=== PATIENT | female | born 1965 | race Caucasian/White ===

== ENCOUNTER → 2018-01-04 | Outpatient (CLI) | payer OTHER ==
[2018-01-04 17:09] LABS: CREATININE FOR GFR 1.01 MG/DL (0.55-1.30); GLOMERULAR FILTRATION RATE > 60.0 (>51)
[2018-01-04 17:09] LABS: BLOOD UREA NITROGEN 13 MG/DL (7-18)
== END ==
LOC: M WUC 14:52
DX: M54.5 Low back pain (principal); Z01.812 Encounter for preprocedural laboratory examination

== ENCOUNTER → 2018-03-02 | Outpatient (REF) | payer OTHER ==
[2018-03-02 13:58] LABS: VITAMIN B12 LEVEL 297 PG/ML
[2018-03-02 13:59] LABS: FOLATE 5.1 NG/ML
[2018-03-02 14:10] LABS: FREE T4 1.19 NG/DL (0.76-1.46); RHEUMATOID FACTOR QUANT < 10.0 IU/ML (<15.0); TOTAL PROTEIN 7.4 GM/DL (6.4-8.2)
[2018-03-02 14:36] LABS: ERYTHROCYTE SEDIMENTATION RATE 15 mm/hr (0-30)
[2018-03-03 10:06] LABS: GLOMERULAR FILTRATION RATE 55.3 (>51)
[2018-03-03 10:06] LABS: BLOOD UREA NITROGEN 11 MG/DL (7-18)
[2018-03-03 12:36] LABS: ALBUMIN % 57.4 % (55.8-66.1)
[2018-03-03 12:37] LABS: ALBUMIN 4.25 GM/DL (3.29-5.55); ALPHA-1-GLOBULIN % 5.3 % (2.9-4.9); ALPHA-1-GLOBULINS 0.39 GM/DL (0.17-0.41); ALPHA-2-GLOBULINS 0.81 GM/DL (0.42-0.99); BETA-1-GLOBULINS 0.52 GM/DL (0.28-0.60); BETA-2-GLOBULINS 0.46 GM/DL (0.19-0.55); BETA-2-GLOBULINS % 6.2 % (3.2-6.5); GAMMA GLOBULIN % 13.1 % (11.1-18.8); GAMMA GLOBULINS 0.97 GM/DL (0.65-1.58)
[2018-03-06 00:06] LABS: ANGIOTENSIN 1 CONVERTING ENZYM 35 U/L (14-82); ANTINUCLEAR ANTIBODIES DIRECT Negative (Negative); METHYLMALONIC ACID 193 nmol/L (0-378); SJOGREN'S ANTI SS-A <0.2 AI (0.0-0.9); SJOGREN'S ANTI SS-B <0.2 AI (0.0-0.9); VITAMIN B1 LEVEL WHOLE BLOOD 108.8 nmol/L (66.5-200.0); VITAMIN E(ALPHA TOCOPHEROL) 6.9 mg/L (7.0-25.1); VITAMIN E(GAMMA TOCOPHEROL) 1.6 mg/L (0.5-5.5)
== END ==
LOC: M LABNEURO 08:53
DX: N18.9 Chronic kidney disease, unspecified (principal); E07.9 Disorder of thyroid, unspecified; D86.9 Sarcoidosis, unspecified

== ENCOUNTER → 2018-05-07 | Outpatient (CLI) | payer OTHER | LOC: M PLARAD 09:39 | DX: G45.9 Transient cerebral ischemic attack, unspecified (principal); R20.2 Paresthesia of skin ==

== ENCOUNTER 2018-07-20 09:03 | Outpatient (CLI) | payer OTHER ==
[2018-07-20] MEDS ORDERED: MIDAZOLAM INJ 2 MG/2 ML VIAL (J2250) As Ordered (09:50)
[2018-07-20] MEDS ORDERED: PROHANCE 279.3MG/ML 5ML VIAL (A9576) As Ordered (10:06)
[2018-07-20] MEDS ORDERED: LR 1,000 ML IV (11:30)
[2018-07-20] MEDS ORDERED: ONDANSETRON 4MG/2ML VIAL (J2405) IV (11:30)
[2018-07-27 09:41] LABS: BEDSIDE GLUCOSE 132 MG/DL (70-105)
== END 2018-07-20 11:14 | disposition home or self-care (01) ==
LOC: M RAD 09:03
DX: G45.9 Transient cerebral ischemic attack, unspecified (principal); R20.2 Paresthesia of skin

== ENCOUNTER → 2018-12-16 | Outpatient (REF) | payer OTHER ==
[~2018-12-16] MED LIST: ADVAIR INH; ATROVENT INH; COMBVENT INH; DIAMOX OR; DIAMOX PO; GABA300T; HYDROCODONE; LEVO25TA2 OR; NEUR300C OR; NEXI20CA OR; NEXIUM OR; OXYC40TA19 OR; PREDNISONE TAPER OR; PROZ20CA OR; PROZ40CA OR; TENO50TA OR; VICO5TAB OR; ZOCO10TA OR; albuterol sulfate INH
[2018-12-16 13:43] LABS: FOLATE 4.3 NG/ML (>5.4)
== END ==
LOC: M LABNEURO 11:04
PROVIDERS: ATTEND Psychiatry & Neurology Neurology
DX: E53.8 Deficiency of other specified B group vitamins (principal)

== ENCOUNTER 2021-01-16 09:45 | Emergency (ER) | payer OTHER ==
[~2021-01-16] VITALS: Ht 175.3 cm; Wt 104.5 kg
[2021-01-16] MEDS ORDERED: TRAZ-252 (10:00)
[2021-01-16] MEDS ORDERED: ALPR0.25 (10:00)
[2021-01-16] MEDS ORDERED: TRUL0.5I (10:00)
[2021-01-16 10:56] LABS: BASO # 0.1 10^3/uL (0.0-0.2); BASO % 0.6 % (0.0-1.0); EOS # 0.1 10^3/uL (0.0-0.5); EOS % 0.5 % (0.0-3.0); HEMATOCRIT 42.3 % (36.0-47.0); LYMPH # 1.6 10^3/uL (1.5-5.0); LYMPH % 15.7 % (24.0-44.0); MEAN CORPUSCULAR HEMOGLOBIN 32.9 pg (27.0-33.0); MEAN CORPUSCULAR HGB CONC 33.1 g/dl (32.0-36.5); MEAN CORPUSCULAR VOLUME 99.3 fl (80.0-96.0); MONO # 0.4 10^3/uL (0.0-0.8); MONO % 3.7 % (2.0-8.0); NEUTROPHILS # 8.2 10^3/uL (1.5-8.5); NEUTROPHILS % 79.1 % (36.0-66.0); PLATELET COUNT, AUTOMATED 244 10^3/uL (150-450); RED BLOOD COUNT 4.26 10^6/uL (4.00-5.40); WHITE BLOOD COUNT 10.4 10^3/uL (4.0-10.0)
[2021-01-16] MEDS ORDERED: NS 1,000 ML IV ONE (11:00)
[2021-01-16] MEDS ORDERED: ONDANSETRON 4MG/2ML VIAL IV ONE (11:00)
[2021-01-16 11:21] LABS: ALBUMIN 3.8 GM/DL (3.2-5.2); BILIRUBIN,DIRECT 0.1 MG/DL (0.0-0.2); BILIRUBIN,TOTAL 0.4 MG/DL (0.2-1.0)
[2021-01-16] MEDS ORDERED: MORPHINE 4 MG/ML 1ML VIAL/SYRINGE (J2270) IV ONE (11:25)
[2021-01-16] MEDS ORDERED: KETOROLAC 30 MG/ML 1ML VIAL IV ONE (12:50)
--- NOTE | 2021-01-16 13:41 | REP ---
INDICATION: LLQ and L flank pain, hematuria. COMPARISON: 04/04/2012 TECHNIQUE: Noncontrast scanning through the abdomen and pelvis with coronal and sagittal reconstructions. FINDINGS: CT abdomen: Lung bases show minor dependent atelectatic change bladder without effusion, infiltrate, nodule or mass. Some linear atelectatic change lateral basal segment of the left lower lobe. Heart not enlarged and there is no pericardial thickening or effusion nor any hiatal hernia. Liver, spleen, pancreas and adrenal glands are normal. The gallbladder surgically absent. The aorta has a few calcifications without aneurysm. There is no periaortic, retroperitoneal or mesenteric pathologic sized lymphadenopathy. Small bowel loops are grossly unremarkable and not dilated. Stool and gas scattered in the colon without signs of colitis or diverticulitis in the abdomen proper. Lung window review of all CT slices in the abdomen and pelvis shows no perforation or free air. No abdominal ascites. The right kidney shows lower pole cortical cyst about 13 mm. There is a nonobstructing lower pole stone about 6 mm. No hydronephrosis, hydroureter or ureteral stone on the right. The left kidney shows extrarenal pelvis, 3 mm lower pole stone, 7 mm lateral lower pole stone and a proximal ureteral stone about 7 mm size. There is periureteral edema and some perinephric edema near the hilum. Another calcification in the left kidney and a pyramid about 6 mm within the lower pole remainder of the course of the left ureter is normal and there are no other ureteral stones. Bone windows show L4-5 and L5-S1 laminectomies and lumbar fusion with disc spacers. These are unchanged. Visualized lower ribs were intact. CT pelvis: Bone windows show the sacrum, SI joints, iliac bones, acetabular leak, ischia and hips without fracture or focal lesion. There are degenerative changes at the lumbosacral junction and both hips with acetabular roof spurring. There is no ventral or inguinal hernia. The bladder is partially filled but without stone, mass or wall thickening. A few pelvic phleboliths are seen. Uterus anteverted not enlarged. No pelvic mass or adenopathy. The distal left colon and sigmoid to the rectum were unremarkable. Small bowel loops unremarkable. Cecum and appendix seen and normal. The appendix is retrocecal extending superiorly with its tip just below the level of the iliac crest in the peritoneal gutter. IMPRESSION: 1. A 7 mm stone in the proximal left ureter at about the level of the left L3 transverse process. There is hydronephrosis, some hydroureter above and below it with periureteral and perirenal stranding. Both kidneys show other stones; on the right nonobstructing in a calyx, on the left probably within a pyramid and calyx. 2. No colitis, diverticulitis, appendicitis or any acute inflammatory process involving bowel loops. 3. No abdominal or pelvic lymphadenopathy. Prior cholecystectomy. Solid organs in the upper abdomen otherwise unremarkable. <Electronically signed by Raheel Israel > 01/16/21 [id number]
[2021-01-16] MEDS ORDERED: cefTRIAXone SOD 1 GM in D5W MINI-BAG PLUS 50 ML IV ONE (14:55)
[2021-01-16] MEDS ORDERED: SULF1TAB23 PO (15:34)
[2021-01-16] MEDS ORDERED: FLOM0.4C39 PO ×2 (15:35→15:43)
[2021-01-16] MEDS ORDERED: KETO10TAB PO ×2 (15:35→15:43)
[2021-01-16] MEDS ORDERED: REGL10TA6 PO ×2 (15:38→15:43)
[2021-01-16] MEDS ORDERED: BACT800T5 PO (15:43)
[2021-01-16 15:45] VITALS: BP 124/71
--- NOTE | 2021-01-16 20:34 | ECGEPIP ---
[facility] - ED Test Date: 2021-01-16 Pat Name: VALERIE SMITH Department: Room: - Gender: Female Yarn Spinner: : [id number] Requested By: NADIA Lima PA-C Order Number: [id number] Reading MD: Mat Ledesma Measurements Intervals [place] Rate: 71 P: 51 IL: 196 QRS: -31 QRSD: 78 T: 70 QT: 400 QTc: 434 Interpretive Statements Normal sinus rhythm Low voltage QRS Nonspecific T wave abnormality NO PRIORS FOR COMPARISON Electronically Signed on 01-16-2021 20:33:54 EDT by Mat Ledesma
== END 2021-01-16 16:00 | disposition home or self-care (01) ==
LOC: M ED 09:45
DX: N20.2 Calculus of kidney with calculus of ureter (principal); N39.0 Urinary tract infection, site not specified; E11.9 Type 2 diabetes mellitus without complications; K21.9 Gastro-esophageal reflux disease without esophagitis; E03.9 Hypothyroidism, unspecified; J45.909 Unspecified asthma, uncomplicated; K58.9 Irritable bowel syndrome, unspecified; F17.200 Nicotine dependence, unspecified, uncomplicated; Z79.84 Long term (current) use of oral hypoglycemic drugs; Z88.1 Allergy status to other antibiotic agents
CPT/HCPCS: 74176; 80047; 80076; 81001; 82150; 83690; 85025; 87086; 93005; 96361; 96365; 96375; 99284; J0696; J1885; J2270; J2405

== ENCOUNTER → 2021-02-06 | Outpatient (CLI) | payer OTHER ==
[~2021-02-06] MED LIST changes: +ALPR0.25; +BACT800T5 PO; +FLOM0.4C39 PO; +KETO10TAB PO; +REGL10TA6 PO; +SULF1TAB23 PO; +TRAZ-252; +TRUL0.5I
--- NOTE | 2021-02-06 09:56 | REP ---
INDICATION: CALCULUS OF KIDNEY COMPARISON: CT dated 01/16/2021 TECHNIQUE: Supine view of the abdomen and pelvis. FINDINGS: 7 mm obstructing left ureteral calculus is now identified at the level of the iliac crest. Smaller nonobstructing left intrarenal calculi noted. Further evaluation of the urinary tract system is limited by overlying bowel gas. Evidence for prior cholecystectomy. Mild/moderate fecal stasis suggested without obstruction. No organomegaly. Prior lumbar spine surgery. IMPRESSION: 1. Obstructing left ureteral calculus has progressed distally to the level of the iliac crest overlying the L5 transverse process. Small nonobstructing left renal calculi. <Electronically signed by Xander Stinson > 02/06/21 0904
== END ==
LOC: M RAD 09:35
PROVIDERS: ATTEND Specialist
DX: N20.1 Calculus of ureter (principal)

== ENCOUNTER → 2021-03-04 | Outpatient (CLI) | payer OTHER ==
[~2021-03-04] MED LIST changes: +ALBU83IN INH; +ALPR0.5T6 PO; +ATEN50TA2 PO; +ATOR40TA75 PO; +CYCL-707 PO; +METO10TA2 PO; +SYNT75TA PO; +TRUL0.5I SC
[2021-03-04 14:02] LABS: APPEARANCE, URINE CLEAR (CLEAR); BACTERIA, URINE AUTO NEGATIVE (NEGATIVE); BILIRUBIN, URINE AUTO NEGATIVE (NEGATIVE); BLOOD, URINE BLOOD NEGATIVE (NEGATIVE); COLOR, URINE COLORLESS (YELLOW); GLUCOSE, URINE (UA) AUTO NEGATIVE (NEGATIVE); KETONE, URINE AUTO NEGATIVE (NEGATIVE); LEUKOCYTE ESTERASE, URINE AUTO NEGATIVE (NEGATIVE); NITRITE, URINE AUTO NEGATIVE (NEGATIVE); PROTEIN, URINE AUTO NEGATIVE (NEGATIVE); RBC, URINE AUTO 0 /HPF (0-3); SPECIFIC GRAVITY URINE AUTO 1.001 (1.002-1.035); SQUAMOUS EPITHELIAL CELL UR AU 0 /HPF (0-6); UROBILINOGEN, URINE AUTO 0.2 mg/dL (0.0-2.0); WBC, URINE AUTO 1 /HPF (0-3)
[2021-03-04 14:02] LABS: MEAN CORPUSCULAR HEMOGLOBIN 32.5 pg (27.0-33.0); MEAN CORPUSCULAR HGB CONC 33.3 g/dl (32.0-36.5); MEAN CORPUSCULAR VOLUME 97.6 fl (80.0-96.0); PLATELET COUNT, AUTOMATED 299 10^3/uL (150-450); RED BLOOD COUNT 4.61 10^6/uL (4.00-5.40); WHITE BLOOD COUNT 9.9 10^3/uL (4.0-10.0)
[2021-03-04 14:14] LABS: INR 0.9; PROTHROMBIN TIME 12.3 SECONDS (12.5-14.3)
[2021-03-04 14:15] LABS: PARTIAL THROMBOPLASTIN TIME 24.5 SECONDS (24.2-38.5)
[2021-03-04 14:30] LABS: CALCIUM LEVEL 9.2 MG/DL (8.5-10.1); CREATININE FOR GFR 1.04 MG/DL (0.55-1.30); GLOMERULAR FILTRATION RATE 58.4 (>51); POTASSIUM SERUM 4.1 MEQ/L (3.5-5.1)
--- NOTE | 2021-03-04 14:42 | REP ---
INDICATION: HYDRONEPHROSIS W RENAL COMPARISON: 07/31/2010 TECHNIQUE: PA and lateral. FINDINGS: The mediastinum and cardiac silhouette are normal. The lung [place] are clear and without acute consolidation, effusion, or pneumothorax. The skeletal structures are intact and normal. IMPRESSION: No acute cardiopulmonary process. <Electronically signed by Xander Stinson > 03/04/21 [id number]
== END ==
LOC: M LAB 13:31
PROVIDERS: ATTEND Nurse Practitioner Women's Health
DX: N13.2 Hydronephrosis with renal and ureteral calculous obstruction (principal); Z01.818 Encounter for other preprocedural examination

== ENCOUNTER → 2021-03-06 | Outpatient (CLI) | payer OTHER | LOC: M LABSMTC 10:33 | PROVIDERS: ATTEND Anesthesiology | DX: Z01.812 Encounter for preprocedural laboratory examination (principal); Z20.822 Contact with and (suspected) exposure to COVID-19 ==

== ENCOUNTER 2021-03-11 06:15 | Day surgery (SDC) | payer OTHER ==
[~2021-03-11] VITALS: Ht 175.3 cm; Wt 107.5 kg
[~2021-03-11 06:15] MED LIST changes: +CIPROFLOXACIN 400 MG in IV 1 EA IV ONE; +LR 1,000 ML IV ONE
[2021-03-11] MEDS ORDERED: CONRAY-60 60% 50ML VIAL (Q9961) As Ordered ONE (07:11)
[2021-03-11] MEDS ORDERED: dexameTHASONE 4 MG/ML 1ML VIAL (J1100 PER 1MG) As Ordered ONE (07:13)
[2021-03-11] MEDS ORDERED: LIDOCAINE 2% 100MG/5ML SDV (FOR ANES.) As Ordered ONE (07:13)
[2021-03-11] MEDS ORDERED: ONDANSETRON 4MG/2ML VIAL As Ordered ONE (07:13)
[2021-03-11] MEDS ORDERED: propofoL 200 MG/20 ML VIAL As Ordered ONE (07:13)
[2021-03-11] MEDS ORDERED: MIDAZOLAM INJ 2MG/2ML VIAL (J2250 PER 1MG) As Ordered ONE (07:14)
[2021-03-11] MEDS ORDERED: fentaNYL 100 MCG/2 ML INJECTION (J3010) As Ordered ONE (07:16)
--- NOTE | 2021-03-11 08:22 | REP ---
INDICATION: CYSTO, LEFT STENT URETEROSCOPY. COMPARISON: None. TECHNIQUE: Intraoperative fluoroscopic imaging using C-arm technique. FINDINGS: Single image demonstrates left ureteral stent extending to the left mid abdomen. Total fluoroscopic time 22 seconds. IMPRESSION: Presumed appropriate left ureteral stent placement. <Electronically signed by Xander Stinson > 03/11/21 0819
--- NOTE | 2021-03-11 08:29 | ROOPDOC ---
[facility] Report Of Operation Report of Operation DATE OF PROCEDURE: 03/11/21 PREPROCEDURE DIAGNOSES: Left ureteral and renal calculi POSTPROCEDURE DIAGNOSES: Left renal calculi PROCEDURE: Cystoscopy, left retrograde pyelogram, ureteroscopic stone extraction, stent insertion, fluoroscopy with x-ray interpretation SURGEON: Damien Miller MD CORING MACHINE OPERATOR: None ANESTHESIA: Gen. ESTIMATED BLOOD LOSS: Approximately 0 mL. COMPLICATIONS: None REMARKS: . PROCEDURE NOTE: The patient was brought to the operating room for a ureteroscopic laser lithotripsy and extraction of renal and ureteral calculi. DESCRIPTION OF PROCEDURE: The patient was placed on the table in the supine position, given general anesthesia, placed in lithotomy position, prepped with Betadine paint, draped in aseptic manner, and timeout was performed. A #22 [place] cystoscope was inserted into the meatus and advanced under direct vision of a 30 lens to the bladder. The bladder appeared normal when surveyed. The left ureteral orifice was then catheterized with a 5 [place] Pollack catheter and retrograde injection of 10 mL of Conray showed no ureteral calculi. A wire guide was then left in place followed by a working wire and the cystoscope was removed. The flexible ureteroscope was then advanced over the working wire and no ureteral stones were seen. In the renal pelvis, each calyx was individually examined. There was one small stone in a lower pole calyx that was grabbed and extracted. No other stones were seen. The ureteroscope was then removed under direct vision and no calculi or fragments were identified. The cystoscope was then backloaded over the safety wire and a 6 [place] double-J stent was passed over the wire which curled well in the renal pelvis and in the bladder when the wire was removed. The cystoscope was removed after draining the bladder and the patient was awakened and sent to recovery room in stable condition having tolerated procedure well. Fluoroscopy was used and interpreted throughout the case to pass instruments and identified stones as well as evaluate the renal calyces. The patient will be seen back in the office in 2 weeks for stent removal. DAMIEN MILLER MD March 11, 2021 08:29
[2021-03-11] MEDS ORDERED: oxyCODONE 5MG TAB PO PRN (09:00)
[2021-03-11] MEDS ORDERED: IBUPROFEN 600MG TAB PO PRN (09:00)
[2021-03-11] MEDS ORDERED: LR 1,000 ML IV SCH ×2 (09:00)
[2021-03-11] MEDS ORDERED: ONDANSETRON 4MG/2ML VIAL IV PRN (09:00)
[2021-03-11] MEDS ORDERED: fentaNYL 100 MCG/2 ML INJECTION (J3010) IV PRN (09:00)
[2021-03-11 09:05] VITALS: BP 100/51
== END 2021-03-11 09:45 | disposition home or self-care (01) ==
LOC: M SDC 06:15
PROVIDERS: ATTEND Urology
DX: N20.0 Calculus of kidney (principal); E03.9 Hypothyroidism, unspecified; E11.9 Type 2 diabetes mellitus without complications; M54.9 Dorsalgia, unspecified; E78.00 Pure hypercholesterolemia, unspecified; K58.9 Irritable bowel syndrome, unspecified; F41.9 Anxiety disorder, unspecified; F32.9 Major depressive disorder, single episode, unspecified; J45.909 Unspecified asthma, uncomplicated; F17.210 Nicotine dependence, cigarettes, uncomplicated; Z88.0 Allergy status to penicillin; Z88.1 Allergy status to other antibiotic agents; Z79.899 Other long term (current) drug therapy; Z79.84 Long term (current) use of oral hypoglycemic drugs; Z79.891 Long term (current) use of opiate analgesic
CPT/HCPCS: 52332; 52352; 74420; 82365; 88300; C1769; C2617; J0744; J1100; J2250; J2405; J3010; Q9961

== ENCOUNTER → 2021-09-03 | Outpatient (CLI) | payer OTHER ==
[~2021-09-03] MED LIST changes: -CIPROFLOXACIN 400 MG in IV 1 EA IV ONE; -LR 1,000 ML IV ONE
== END ==
LOC: M WHC 10:13
PROVIDERS: ATTEND Family Medicine
DX: Z53.20 Procedure and treatment not carried out because of patient's decision for unspecified reasons (principal)

== ENCOUNTER → 2021-09-24 | Outpatient (CLI) | payer OTHER ==
--- NOTE | 2021-09-24 12:48 | REPMRS ---
Patient History The patient states she has not had a clinical breast exam in over a year. Patient is postmenopausal and is nulliparous. Family history of colorectal cancer at age 75 in maternal grandmother. Patient states no breast complaints today. Patient has signed MRS History Sheet. Diagnostic Bilateral Mammo: September 24, 2021 - Exam #: [id number] Bilateral CC and MLO view(s) were taken. Technologist: Nela Starr, Technologist Prior study comparison: June 19, 2020, bilateral digital mammo screening bilat, performed at [facility]. February 17, 2019, left breast digital mammo diagnostic unilateral, performed at [facility]. February 17, 2019, left breast ultrasound, performed at [facility]. January 25, 2019, bilateral digital mammo screening bilat, performed at [facility]. FINDINGS: The breast tissue is almost entirely fat. Screening. Digital screening (2D) mammography was performed bilaterally in the CC and MLO projections. Additionally, breast tomosynthesis (3D mammography) was performed bilaterally in the CC and MLO projections. Todays exam was compared to the prior exam/exams. By history, the patient has no complaints of a palpable breast abnormality or other significant breast complaints. The Volpara volumetric breast density category is A, the breasts are almost entirely fatty. The breasts are unchanged in size and shape. There are no clarence-soft tissue densities or spiculated masses. There is no internal architectural distortion. There are no suspicious clarence-calcific clusters. Skin thickening or nipple retraction is not present. IMPRESSION: BI-RADS Category 2- Benign Findings. There is no evidence of malignant alteration of the breasts. Followup examination recommended in one year. This mammogram was read with the assistance of [facility],an FDA approved computer aided detection system for mammography. The lifetime Tyrer-Cuzick score is 9.3% Negative x-ray reports should not delay surgical consultation if a dominant or clinically suspicious mass is present. Not all breast cancers can be identified by mammography. Therefore, we recommend that you continue to perform regular breast self-examination and physical examination and then promptly contact your physician of any concerns or changes. Adenosis and dense breasts may obscure an underlying neoplasm. No significant changes when compared with prior studies. Assessment: BI-RADS/ACR category 2 mammogram. Benign Findings. Recommendation Routine screening mammogram of both breasts in 1 year. Electronically Signed By: Dharmesh Osuna MD 09/24/21 [id number]
== END ==
LOC: M WHC 11:59
PROVIDERS: ATTEND Family Medicine
DX: Z13.89 Encounter for screening for other disorder (principal); Z78.0 Asymptomatic menopausal state
CPT/HCPCS: 77066; G0279

== ENCOUNTER → 2021-10-01 | Outpatient (CLI) | payer OTHER ==
--- NOTE | 2021-10-01 09:41 | REP ---
INDICATION: KIDNEY STONES COMPARISON: None. TECHNIQUE: Supine view of the abdomen and pelvis. FINDINGS: Evaluation of the urinary tract system is significantly limited due to overlying bowel gas. A small 3 mm calcification in the upper pole left kidney is suspected. Bowel gas pattern suggests moderate fecal stasis without obstruction. Evidence for prior cholecystectomy. Lower lumbar fixation noted. Skeletal structures demonstrate degenerative changes. IMPRESSION: Cannot exclude small 3 mm left renal calculus. <Electronically signed by Xander Stinson > 10/01/21 0972
== END ==
LOC: M WUC 09:04
PROVIDERS: ATTEND Urology
DX: N20.0 Calculus of kidney (principal)

== ENCOUNTER → 2021-10-01 | Outpatient (CLI) | payer OTHER ==
[2021-10-01 12:30] LABS: CREATININE FOR GFR 1.12 MG/DL (0.55-1.30); GLOMERULAR FILTRATION RATE 53.4 (>51)
== END ==
LOC: M WUC 09:07
PROVIDERS: ATTEND Nurse Practitioner Family
DX: M54.16 Radiculopathy, lumbar region (principal)

== ENCOUNTER → 2021-11-27 | Outpatient (CLI) | payer OTHER | LOC: M RAD 13:17 | PROVIDERS: ATTEND Family Medicine | DX: F17.210 Nicotine dependence, cigarettes, uncomplicated (principal) ==

== ENCOUNTER → 2022-05-27 | Outpatient (CLI) | payer OTHER ==
[~2022-05-27] MED LIST changes: +ALBU2.5V10 INH; -ALBU83IN INH
== END ==
LOC: M PLAIMG 10:24
PROVIDERS: ATTEND Family Medicine
DX: R91.1 Solitary pulmonary nodule (principal)

== ENCOUNTER → 2022-09-19 | Outpatient (REF) | payer OTHER ==
[2022-09-19 19:39] LABS: FOLATE 6.5 NG/ML (>5.4)
== END ==
LOC: M LAB REF 16:59
PROVIDERS: ATTEND Family Medicine
DX: G60.9 Hereditary and idiopathic neuropathy, unspecified (principal)

== ENCOUNTER → 2022-10-02 | Outpatient (CLI) | payer OTHER | LOC: M WUC 13:40 | PROVIDERS: ATTEND Urology | DX: N20.0 Calculus of kidney (principal) ==

== ENCOUNTER → 2022-10-24 | Outpatient (CLI) | payer OTHER ==
[~2022-10-24] MED LIST changes: +ACET500C10 PO; +METF10004 PO; +OXYC1TAB23 PO
[2022-10-24 14:11] LABS: HEMATOCRIT 46.1 % (36.0-47.0); HEMOGLOBIN 15.3 g/dl (12.0-15.5); MEAN CORPUSCULAR HEMOGLOBIN 33.1 pg (27.0-33.0); MEAN CORPUSCULAR HGB CONC 33.2 g/dl (32.0-36.5); MEAN CORPUSCULAR VOLUME 99.8 fl (80.0-96.0); PLATELET COUNT, AUTOMATED 261 10^3/uL (150-450); RED BLOOD COUNT 4.62 10^6/uL (4.00-5.40); WHITE BLOOD COUNT 8.3 10^3/uL (4.0-10.0)
[2022-10-24 14:42] LABS: BLOOD UREA NITROGEN 12 MG/DL (9-23); CALCIUM LEVEL 9.4 MG/DL (8.5-10.1); CARBON DIOXIDE LEVEL 22 MMOL/L (20-31); CHLORIDE LEVEL 107 MMOL/L (98-107); CREATININE FOR GFR 0.95 MG/DL (0.55-1.30); GLOMERULAR FILTRATION RATE > 60.0 (>51); GLUCOSE, FASTING 133 MG/DL (60-100); POTASSIUM SERUM 4.4 MMOL/L (3.5-5.1); SODIUM LEVEL 138 MMOL/L (136-145)
== END ==
LOC: M RAD 13:12
PROVIDERS: ATTEND Urology
DX: Z01.818 Encounter for other preprocedural examination (principal); N20.0 Calculus of kidney

== ENCOUNTER → 2022-10-26 | Outpatient (CLI) | payer OTHER ==
[~2022-10-26] MED LIST changes: -OXYC1TAB23 PO
== END ==
LOC: M LABSMTC 10:26
PROVIDERS: ATTEND Anesthesiology
DX: Z01.812 Encounter for preprocedural laboratory examination (principal); Z20.822 Contact with and (suspected) exposure to COVID-19

== ENCOUNTER 2022-10-30 08:30 | Day surgery (SDC) | payer OTHER ==
[~2022-10-30] VITALS: Ht 175.3 cm; Wt 100.2 kg
[~2022-10-30 08:30] MED LIST changes: +ACETAMINOPHEN 1000MG 100ML IV BAG As Ordered ONE; +LR 1,000 ML IV SCH; +LevoFLOXacin IV 500 MG in IV 1 EA IV ONE; +MIDAZOLAM INJ 2MG/2ML VIAL As Ordered ONE; -OXYC1TAB23 PO; +fentaNYL 100 MCG/2 ML INJECTION As Ordered ONE; +propofoL 200 MG/20 ML VIAL As Ordered ONE
[2022-10-30] MEDS ORDERED: FLOM0.4C39 PO (08:59)
[2022-10-30] MEDS ORDERED: OXYC1TAB23 PO (08:59)
[2022-10-30] MEDS ORDERED: ONDANSETRON 4MG 2ML VIAL As Ordered ONE (09:07)
[2022-10-30 09:56] VITALS: BP 130/66
== END 2022-10-30 10:00 | disposition home or self-care (01) ==
LOC: M SDC 08:30
PROVIDERS: ATTEND Urology
DX: N20.0 Calculus of kidney (principal); I10 Essential (primary) hypertension; E78.5 Hyperlipidemia, unspecified; E11.9 Type 2 diabetes mellitus without complications; Z79.899 Other long term (current) drug therapy; F41.9 Anxiety disorder, unspecified; J45.909 Unspecified asthma, uncomplicated; Z79.84 Long term (current) use of oral hypoglycemic drugs; K58.8 Other irritable bowel syndrome; Z88.0 Allergy status to penicillin; Z88.1 Allergy status to other antibiotic agents
CPT/HCPCS: 50590; 74018; J1956

== ENCOUNTER → 2022-10-30 | Outpatient (CLI) | payer OTHER ==
[~2022-10-30] MED LIST changes: +OXYC1TAB23 PO
== END ==
LOC: M RAD 06:55
PROVIDERS: ATTEND Urology
DX: Z01.818 Encounter for other preprocedural examination (principal); Z53.8 Procedure and treatment not carried out for other reasons

== ENCOUNTER → 2022-11-17 | Outpatient (CLI) | payer OTHER ==
[~2022-11-17] MED LIST changes: -ACETAMINOPHEN 1000MG 100ML IV BAG As Ordered ONE; -LR 1,000 ML IV SCH; -LevoFLOXacin IV 500 MG in IV 1 EA IV ONE; -MIDAZOLAM INJ 2MG/2ML VIAL As Ordered ONE; +OXYC1TAB23 PO; -fentaNYL 100 MCG/2 ML INJECTION As Ordered ONE; -propofoL 200 MG/20 ML VIAL As Ordered ONE
== END ==
LOC: M RAD 14:54
PROVIDERS: ATTEND Urology
DX: N20.0 Calculus of kidney (principal)

== ENCOUNTER → 2022-11-19 | Outpatient (REF) | payer OTHER | LOC: M SMT 13:48 | PROVIDERS: ATTEND Nurse Practitioner Women's Health | DX: N20.0 Calculus of kidney (principal) ==

== ENCOUNTER → 2023-05-14 | Outpatient (CLI) | payer OTHER | LOC: M WUC 10:42 | PROVIDERS: ATTEND Nurse Practitioner Women's Health | DX: N20.0 Calculus of kidney (principal) ==

== ENCOUNTER 2023-09-07 07:41 | Day surgery (SDC) | payer OTHER ==
[~2023-09-07] VITALS: Ht 175.3 cm; Wt 82.3 kg
[~2023-09-07 07:41] MED LIST changes: +NS 1,000 ML IV ONE; +TURM500C3 PO
[2023-09-07] MEDS ORDERED: propofoL 200 MG/20 ML VIAL As Ordered ONE ×2 (08:58→09:17)
[2023-09-07 09:19] VITALS: TEMP 97
[2023-09-07 09:34] VITALS: BP 105/53; O2SAT 99
== END 2023-09-07 09:50 | disposition home or self-care (01) ==
LOC: M OPP 07:41
PROVIDERS: ATTEND Internal Medicine Gastroenterology
DX: Z12.11 Encounter for screening for malignant neoplasm of colon (principal); K64.0 First degree hemorrhoids; E11.9 Type 2 diabetes mellitus without complications; E03.9 Hypothyroidism, unspecified; K58.9 Irritable bowel syndrome, unspecified; F41.9 Anxiety disorder, unspecified; J45.909 Unspecified asthma, uncomplicated; F17.210 Nicotine dependence, cigarettes, uncomplicated; Z88.0 Allergy status to penicillin; Z88.1 Allergy status to other antibiotic agents; Z79.84 Long term (current) use of oral hypoglycemic drugs; Z79.85 Long-term (current) use of injectable non-insulin antidiabetic drugs; Z79.890 Hormone replacement therapy; Z79.899 Other long term (current) drug therapy

== ENCOUNTER 2024-02-25 11:51 | Emergency (ER) | payer OTHER ==
[~2024-02-25] VITALS: Ht 177.8 cm; Wt 86.9 kg
[~2024-02-25 11:51] MED LIST changes: -NS 1,000 ML IV ONE
[2024-02-25] MEDS ORDERED: TRAZ-252 PO (14:54)
[2024-02-25] MEDS: ALBUTEROL SULFATE 2.5MG/0.5ML INH NEB SOLN NEB ONE (14:58)
[2024-02-25] MEDS ORDERED: VENTAER INH (16:03)
[2024-02-25] MEDS ORDERED: LASI20TA3 PO (16:03)
[2024-02-25] MEDS ORDERED: BENZ200C70 PO (16:03)
[2024-02-25] MEDS ORDERED: CEFD1CAP9 PO ×2 (16:03→17:16)
[2024-02-25 16:14] VITALS: BP 121/58; TEMP 97.4; O2SAT 95
== END 2024-02-25 16:15 | disposition home or self-care (01) ==
LOC: M ED 11:51
DX: H66.001 Acute suppurative otitis media without spontaneous rupture of ear drum, right ear (principal); R05.9 Cough, unspecified; G93.2 Benign intracranial hypertension; F17.210 Nicotine dependence, cigarettes, uncomplicated; Z88.0 Allergy status to penicillin; Z88.1 Allergy status to other antibiotic agents; Z79.51 Long term (current) use of inhaled steroids; Z79.2 Long term (current) use of antibiotics; Z79.4 Long term (current) use of insulin; Z79.84 Long term (current) use of oral hypoglycemic drugs; Z79.899 Other long term (current) drug therapy

== ENCOUNTER → 2024-05-23 | Outpatient (CLI) | payer OTHER ==
[~2024-05-23] MED LIST changes: +BENZ200C70 PO; +CEFD1CAP9 PO; +LASI20TA3 PO; +TRAZ-252 PO; +VENTAER INH
== END ==
LOC: M WUC 10:16
PROVIDERS: ATTEND Urology
DX: N20.0 Calculus of kidney (principal)

== ENCOUNTER → 2024-10-21 | Outpatient (CLI) | payer OTHER | LOC: M RAD 16:23 | PROVIDERS: ATTEND Internal Medicine Pulmonary Disease | DX: Z12.2 Encounter for screening for malignant neoplasm of respiratory organs (principal); F17.218 Nicotine dependence, cigarettes, with other nicotine-induced disorders ==

== ENCOUNTER → 2025-03-02 | Outpatient (REF) | payer OTHER ==
[~2025-03-02] MED LIST changes: -FLOM0.4C39 PO; +TAMS-18 PO; +TURM1CAP7 PO; -TURM500C3 PO
[2025-03-02 19:22] LABS: CREATININE FOR GFR 0.85 MG/DL (0.55-1.30); GLOMERULAR FILTRATION RATE 78.4 (>45)
== END ==
LOC: M LABWUC 17:44
PROVIDERS: ATTEND Physician Assistant Medical
DX: Z01.812 Encounter for preprocedural laboratory examination (principal); M54.50 Low back pain, unspecified